=== PATIENT | male | born 1945 | race Caucasian/White ===

== ENCOUNTER 2017-05-01 14:03 | Inpatient (IN) | payer BC, MEDICARE ==
[2017-05-01] VITALS (108 sets, daily range): BP systolic 78–106; BP diastolic 40–53; PULSE 76–89; TEMP 98.5–99.6; O2SAT 83–95
[~2017-05-01] VITALS: Ht 177.8 cm; Wt 73.2 kg
[~2017-05-01 14:03] MED LIST: ASPIRIN E.C. 8181 MG PO; DESYREL 50MG50 MG PO; IMODIUM 2MG CAPS2 MG PO; KLOR-CON 1010 MEQ PO; LIPITOR20 MG PO; MICROZIDE12.5 MG PO; NORVASC 10MG10 MG PO; PRINIVIL40 MG PO; PROAIR HFA0.09 MG/AC IH; ZITHROMAX500 M2 PO; ZYLOPRIM 100MG100 MG PO
[2017-05-01 20:15] LABS: ARTERIAL BLD GAS O2 SATURATION 89.7 % (92-100); ARTERIAL BLD GAS TCO2 CT 29.9; ARTERIAL BLOOD GAS BASE EXCESS 6.1 (-2-2); ARTERIAL BLOOD GAS HCO3 28.8 meq/L (22-26); ARTERIAL BLOOD GAS PCO2 35.2 mmHg (35-45); ARTERIAL BLOOD GAS PO2 54.2 mmHg (80-100); ARTERIAL BLOOD GAS pH 7.53 (7.35-7.45)
[2017-05-01 20:38] LABS: MEAN CELL VOLUME 84 fl (80.0-100.0); MEAN CORPUSCULAR HGB CONC 34 g/dl (33.0-37.0); MEAN PLATELET VOLUME 10.9 fl (7.4-10.4); PLATELET COUNT 552 K/mm3 (130-400); RED BLOOD COUNT 3.96 M/mm3 (4.20-5.60); REDCELL DISTRIBUTION WIDTH-CV 14.4 % (11.5-14.5)
[2017-05-01 20:41] LABS: HEMATOCRIT 33.1 % (42.0-52.0); HEMOGLOBIN 11.3 g/dl (13.5-18.0); MEAN CORPUSCULAR HEMOGLOBIN 29 pg (27.0-31.0)
[2017-05-01 20:47] LABS: INR 1.3 (0.8-3.0); PROTHROMBIN TIME 15.6 SECONDS (9.7-12.8)
[2017-05-01 20:51] LABS: ALANINE AMINOTRANSFERASE 35 U/L (21-72); ALKALINE PHOSPHATASE 142 U/L (50-136); ANION GAP 11 mmol/L (7-16); AST,SGOT 55 U/L (15-37); BILIRUBIN,TOTAL 0.3 mg/dL (0.0-1.0); BLOOD UREA NITROGEN 33 mg/dL (9-20); CALCIUM 7.9 mg/dL (8.4-10.2); CARBON DIOXIDE 31 mmol/L (22-30); CHLORIDE 94 mmol/L (98-107); CREATININE, serum 1.07 mg/dL (0.66-1.25); GLUCOSE 255 mg/dL (74-106); SODIUM 136 mmol/L (137-145); TOTAL PROTEIN 6.5 gm/dL (6.4-8.2)
[2017-05-01 20:54] LABS: POTASSIUM 2.9 mmol/L (3.4-5.0); SALICYLATE < 1.0 mg/dL
[2017-05-01 22:08] LABS: BAND 26 % (0-10); LYMPHOCYTE 1 % (20.0-51.0); NEUTROPHILS 73 % (42.0-75.2); PLATELET ESTIMATE INCREASED (NORMAL)
[2017-05-02] VITALS (1257 sets, daily range): BP systolic 90–121; BP diastolic 49–73; PULSE 62–80; TEMP 96.7–98.7; O2SAT 69–100
[2017-05-02 01:13] LABS: AMORPHOUS CRYSTAL Present /uL; COLLECTION METHOD CLEAN CATCH; MUCOUS Present /lpf; PH 5 (5-8); SQUAMOUS EPITHELIAL 0-2 /hpf; URINE APPEARANCE Hazy; URINE BACTERIA Rare /hpf; URINE BILIRUBIN Negative (NEGATIVE); URINE BLOOD 1+ (NEGATIVE); URINE COLOR Yellow; URINE GLUCOSE Negative (NEGATIVE); URINE KETONE Negative (NEGATIVE); URINE LEUKOCYTE ESTERASE Negative (NEGATIVE); URINE NITRATE Negative (NEGATIVE); URINE PROTEIN(semi-quant) 1+ (NEGATIVE); URINE UROBILINOGEN Negative (NEGATIVE)
[2017-05-02 04:24] LABS: MEAN CELL VOLUME 84 fl (80.0-100.0); MEAN CORPUSCULAR HGB CONC 34 g/dl (33.0-37.0); MEAN PLATELET VOLUME 10.7 fl (7.4-10.4); RED BLOOD COUNT 3.62 M/mm3 (4.20-5.60); REDCELL DISTRIBUTION WIDTH-CV 14.6 % (11.5-14.5)
[2017-05-02 04:31] LABS: INR 1.2 (0.8-3.0); PROTHROMBIN TIME 14.5 SECONDS (9.7-12.8)
[2017-05-02 04:34] LABS: ALBUMIN 2.7 gm/dL (3.5-5.0); BILIRUBIN,TOTAL 0.3 mg/dL (0.0-1.0); CALCIUM 7.3 mg/dL (8.4-10.2); CREATININE, serum 0.98 mg/dL (0.66-1.25); POTASSIUM 3.2 mmol/L (3.4-5.0); TOTAL PROTEIN 5.9 gm/dL (6.4-8.2)
[2017-05-02 04:47] LABS: HEMATOCRIT 30.5 % (42.0-52.0); HEMOGLOBIN 10.5 g/dl (13.5-18.0); MEAN CORPUSCULAR HEMOGLOBIN 29 pg (27.0-31.0); PLATELET COUNT 451 K/mm3 (130-400)
[2017-05-02 04:56] LABS: BAND 3 % (0-10); LYMPHOCYTE 4 % (20.0-51.0); NEUTROPHILS 90 % (42.0-75.2); ROULEAUX 1+; TOXIC GRANULATION PRESENT
[2017-05-02 04:57] LABS: TARGET CELLS 2+
[2017-05-02 04:58] LABS: ANISOCYTOSIS 1+; POIKILOCYTOSIS 1+
[2017-05-03] VITALS (519 sets, daily range): BP systolic 109–137; BP diastolic 57–75; PULSE 64–109; TEMP 97–98.3; O2SAT 79–95
[2017-05-03 06:10] LABS: MEAN CELL VOLUME 86 fl (80.0-100.0); MEAN CORPUSCULAR HGB CONC 33 g/dl (33.0-37.0); MEAN PLATELET VOLUME 10.8 fl (7.4-10.4); PLATELET COUNT 481 K/mm3 (130-400); RED BLOOD COUNT 3.64 M/mm3 (4.20-5.60); REDCELL DISTRIBUTION WIDTH-CV 15.1 % (11.5-14.5)
[2017-05-03 06:16] LABS: INR 1.2 (0.8-3.0); PROTHROMBIN TIME 13.5 SECONDS (9.7-12.8)
[2017-05-03 06:22] LABS: HEMATOCRIT 31.3 % (42.0-52.0); HEMOGLOBIN 10.3 g/dl (13.5-18.0); MEAN CORPUSCULAR HEMOGLOBIN 28 pg (27.0-31.0)
[2017-05-03 06:27] LABS: ALBUMIN 2.6 gm/dL (3.5-5.0); BILIRUBIN,TOTAL 0.3 mg/dL (0.0-1.0); CALCIUM 7.1 mg/dL (8.4-10.2); CREATININE, serum 0.73 mg/dL (0.66-1.25); POTASSIUM 3.2 mmol/L (3.4-5.0); TOTAL PROTEIN 5.9 gm/dL (6.4-8.2)
[2017-05-03 09:35] LABS: BAND 31 % (0-10); HYPOCHROMIA 1+; LYMPHOCYTE 8 % (20.0-51.0); NEUTROPHILS 60 % (42.0-75.2); PLATELET ESTIMATE INCREASED (NORMAL); TARGET CELLS 2+
[2017-05-04 03:44] VITALS: BP 145/77; PULSE 44; TEMP 97.9
[2017-05-04 06:56] LABS: INR 1.2 (0.8-3.0); PROTHROMBIN TIME 13.5 SECONDS (9.7-12.8)
[2017-05-04 06:57] LABS: MEAN CELL VOLUME 87 fl (80.0-100.0); MEAN CORPUSCULAR HGB CONC 33 g/dl (33.0-37.0); MEAN PLATELET VOLUME 10.6 fl (7.4-10.4); PLATELET COUNT 535 K/mm3 (130-400); RED BLOOD COUNT 3.64 M/mm3 (4.20-5.60); REDCELL DISTRIBUTION WIDTH-CV 15.2 % (11.5-14.5)
[2017-05-04 07:12] LABS: HEMATOCRIT 31.5 % (42.0-52.0); HEMOGLOBIN 10.3 g/dl (13.5-18.0); MEAN CORPUSCULAR HEMOGLOBIN 28 pg (27.0-31.0)
[2017-05-04 07:16] LABS: ALBUMIN 2.6 gm/dL (3.5-5.0); BILIRUBIN,TOTAL 0.3 mg/dL (0.0-1.0); CALCIUM 7.5 mg/dL (8.4-10.2); CREATININE, serum 0.79 mg/dL (0.66-1.25); POTASSIUM 3.3 mmol/L (3.4-5.0); TOTAL PROTEIN 5.9 gm/dL (6.4-8.2)
[2017-05-04 08:10] VITALS: BP 138/75; PULSE 67; TEMP 97.8
[2017-05-04 10:45] LABS: BAND 4 % (0-10); LYMPHOCYTE 5 % (20.0-51.0); NEUTROPHILS 87 % (42.0-75.2); PLATELET ESTIMATE INCREASED (NORMAL)
[2017-05-04 10:46] LABS: HYPOCHROMIA 1+
[2017-05-04 11:53] VITALS: BP 147/81; PULSE 71; TEMP 97.7
[2017-05-04 15:21] VITALS: BP 145/85; PULSE 77; TEMP 98.1
[2017-05-04 20:21] VITALS: BP 166/96; PULSE 79; TEMP 98.1
[2017-05-04 22:37] VITALS: BP 162/92; PULSE 86; TEMP 98.4
[2017-05-05 00:01] VITALS: BP 138/65; PULSE 80; TEMP 98.3
[2017-05-05 03:42] VITALS: BP 140/65; PULSE 79; TEMP 98.1
[2017-05-05 07:53] LABS: MEAN CELL VOLUME 87 fl (80.0-100.0); MEAN CORPUSCULAR HGB CONC 33 g/dl (33.0-37.0); MEAN PLATELET VOLUME 10.5 fl (7.4-10.4); PLATELET COUNT 531 K/mm3 (130-400); RED BLOOD COUNT 3.89 M/mm3 (4.20-5.60); REDCELL DISTRIBUTION WIDTH-CV 15.5 % (11.5-14.5)
[2017-05-05 07:54] LABS: HEMATOCRIT 33.8 % (42.0-52.0); MEAN CORPUSCULAR HEMOGLOBIN 28 pg (27.0-31.0)
[2017-05-05 08:03] VITALS: BP 156/73; PULSE 77; TEMP 99
[2017-05-05 08:08] LABS: CALCIUM 7.8 mg/dL (8.4-10.2); CREATININE, serum 0.77 mg/dL (0.66-1.25); MAGNESIUM 1.7 mg/dL (1.6-2.3)
[2017-05-05] MEDS ORDERED: OMNICEF 300MG300 MG PO (08:31)
[2017-05-05] MEDS ORDERED: MAG-OX 400400 MG/TAB PO (08:33)
[2017-05-05] MEDS ORDERED: K-TAB20 PO (08:33)
[2017-05-05] MEDS ORDERED: MEDROL 4MG DOSPA4 MG PO (08:43)
[2017-05-05 09:44] LABS: BAND 8 % (0-10); LYMPHOCYTE 13 % (20.0-51.0); NEUTROPHILS 68 % (42.0-75.2); PLATELET ESTIMATE INCREASED (NORMAL)
[2017-05-05 09:45] LABS: HYPOCHROMIA 2+
== END 2017-05-05 12:45 | disposition home or self-care (01) | DRG 871 ==
LOC: MEDICAL 14:03 → ICU 20:56 → MEDICAL 05-03 12:15
PROVIDERS: Nurse Practitioner Family
PROC: 02HV33Z Insertion of Infusion Device into Superior Vena Cava, Percutaneous Approach (ICD-10-PCS; principal; 2017-05-01)
DX: A41.9 Sepsis, unspecified organism (principal); J18.9 Pneumonia, unspecified organism; R65.21 Severe sepsis with septic shock; J96.01 Acute respiratory failure with hypoxia; I21.4 Non-ST elevation (NSTEMI) myocardial infarction; E43 Unspecified severe protein-calorie malnutrition; I10 Essential (primary) hypertension; J44.9 Chronic obstructive pulmonary disease, unspecified; F17.210 Nicotine dependence, cigarettes, uncomplicated; E87.6 Hypokalemia; R73.9 Hyperglycemia, unspecified
CPT/HCPCS: 99222-AI; 99232-AI; 99233-AI; 99239; J0456; J0696; J1644; J1650; J1720; J2543; J3370; J7030; J7050; J7512

== ENCOUNTER 2017-12-31 07:11 | Outpatient (CLI) | payer BC, MEDICARE ==
[~2017-12-31] VITALS: Ht 177.8 cm; Wt 60.7 kg
[2017-12-31] VITALS (12 sets, daily range): BP systolic 93–141; BP diastolic 53–70; PULSE 65–83; TEMP 98.1
[~2017-12-31 07:11] MED LIST changes: +K-TAB20 PO; +MAG-OX 400400 MG/TAB PO; +MEDROL 4MG DOSPA4 MG PO; +OMNICEF 300MG300 MG PO
[2017-12-31] MEDS ORDERED: MAG-OX 400400 MG/TAB PO (07:24)
[2017-12-31] MEDS ORDERED: K-DUR20 MEQ PO (07:25)
[2017-12-31] MEDS ORDERED: K-TAB10 PO (07:28)
== END 2017-12-31 10:10 | disposition home or self-care (01) ==
LOC: COL.RAD 07:11
DX: J84.10 Pulmonary fibrosis, unspecified (principal); J98.4 Other disorders of lung; R91.8 Other nonspecific abnormal finding of lung field
CPT/HCPCS: 32106

== ENCOUNTER → 2018-01-29 | Outpatient (REF) ==
[~2018-01-29] MED LIST changes: +K-DUR20 MEQ PO; +K-TAB10 PO
[2018-01-29 05:16] LABS: HEMATOCRIT 32.6 % (42.0-52.0); HEMOGLOBIN 10.5 g/dl (13.5-18.0); MEAN CELL VOLUME 88 fl (80.0-100.0); MEAN CORPUSCULAR HEMOGLOBIN 29 pg (27.0-31.0); MEAN CORPUSCULAR HGB CONC 32 g/dl (33.0-37.0); MEAN PLATELET VOLUME 10.3 fl (7.4-10.4); PLATELET COUNT 410 K/mm3 (130-400); RED BLOOD COUNT 3.69 M/mm3 (4.20-5.60); REDCELL DISTRIBUTION WIDTH-CV 15.2 % (11.5-14.5)
[2018-01-29 05:31] LABS: BAND 8 % (0-10); HYPOCHROMIA 1+; LYMPHOCYTE 3 % (20.0-51.0); NEUTROPHILS 87 % (42.0-75.2)
[2018-01-29 05:32] LABS: TARGET CELLS 1+
[2018-01-29 05:34] LABS: PLATELET ESTIMATE INCREASED (NORMAL)
== END ==
LOC: ZMSC 05:13
PROVIDERS: Student in an Organized Health Care Education/Training Program
DX: Z01.89 Encounter for other specified special examinations (principal)

== ENCOUNTER 2018-02-16 14:45 | Inpatient (IN) | payer BC, MEDICARE ==
[~2018-02-16] VITALS: Ht 177.8 cm; Wt 56.3 kg
[2018-02-16 15:05] VITALS: BP 80/35; PULSE 57; TEMP 98.5
[2018-02-16 15:55] LABS: MEAN CELL VOLUME 84 fl (80.0-100.0); MEAN CORPUSCULAR HGB CONC 32 g/dl (33.0-37.0); MEAN PLATELET VOLUME 9.9 fl (7.4-10.4); PLATELET COUNT 594 K/mm3 (130-400); REDCELL DISTRIBUTION WIDTH-CV 15.3 % (11.5-14.5)
[2018-02-16 16:00] LABS: CREATININE, serum 1.57 mg/dL (0.66-1.25); HEMATOCRIT 30.1 % (42.0-52.0); HEMOGLOBIN 9.7 g/dl (13.5-18.0); MEAN CORPUSCULAR HEMOGLOBIN 27 pg (27.0-31.0)
[2018-02-16 16:14] LABS: BAND 9 % (0-10); LYMPHOCYTE 6 % (20.0-51.0); NEUTROPHILS 77 % (42.0-75.2); PLATELET ESTIMATE INCREASED (NORMAL)
[2018-02-16] MEDS ORDERED: NICODERM C14 MG/PATC TD (16:54)
[2018-02-16] MEDS ORDERED: PREVALITE4 GM/5.5 G PO (16:55)
[2018-02-16 21:22] VITALS: BP 94/80; PULSE 74; TEMP 98.9
[2018-02-17] VITALS (7 sets, daily range): BP systolic 52–139; BP diastolic 37–115; PULSE 64–77; TEMP 98–99
[2018-02-17 06:04] LABS: MEAN CELL VOLUME 83 fl (80.0-100.0); MEAN CORPUSCULAR HGB CONC 32 g/dl (33.0-37.0); MEAN PLATELET VOLUME 9.8 fl (7.4-10.4); PLATELET COUNT 545 K/mm3 (130-400); RED BLOOD COUNT 3.21 M/mm3 (4.20-5.60); REDCELL DISTRIBUTION WIDTH-CV 14.9 % (11.5-14.5)
[2018-02-17 06:08] LABS: HEMATOCRIT 26.6 % (42.0-52.0); HEMOGLOBIN 8.6 g/dl (13.5-18.0); MEAN CORPUSCULAR HEMOGLOBIN 27 pg (27.0-31.0)
[2018-02-17 06:12] LABS: CALCIUM 8.3 mg/dL (8.4-10.2); CREATININE, serum 1.17 mg/dL (0.66-1.25); POTASSIUM 3.4 mmol/L (3.4-5.0)
[2018-02-17 06:54] LABS: BAND 15 % (0-10); LYMPHOCYTE 7 % (20.0-51.0); NEUTROPHILS 72 % (42.0-75.2); PLATELET ESTIMATE INCREASED (NORMAL)
[2018-02-17 06:55] LABS: ERYTHROCYTE SEDIMENTATION RATE > 140 mm/hr (0-30); HYPOCHROMIA 1+
[2018-02-18 03:34] LABS: PROCALCITONIN 0.32 ng/mL (0.00-0.09)
[2018-02-18 04:28] VITALS: BP 94/78; PULSE 74; TEMP 98.6
[2018-02-18 07:51] LABS: MEAN CELL VOLUME 84 fl (80.0-100.0); MEAN CORPUSCULAR HGB CONC 31 g/dl (33.0-37.0); MEAN PLATELET VOLUME 10.3 fl (7.4-10.4); PLATELET COUNT 531 K/mm3 (130-400); RED BLOOD COUNT 2.88 M/mm3 (4.20-5.60); REDCELL DISTRIBUTION WIDTH-CV 15.4 % (11.5-14.5)
[2018-02-18 07:55] LABS: HEMATOCRIT 24.2 % (42.0-52.0); HEMOGLOBIN 7.6 g/dl (13.5-18.0); MEAN CORPUSCULAR HEMOGLOBIN 26 pg (27.0-31.0)
[2018-02-18 08:00] VITALS: BP 113/54; PULSE 71; TEMP 97.5
[2018-02-18 08:08] LABS: BAND 11 % (0-10); LYMPHOCYTE 2 % (20.0-51.0); NEUTROPHILS 87 % (42.0-75.2); PLATELET ESTIMATE INCREASED (NORMAL)
[2018-02-18 08:09] LABS: HYPOCHROMIA 2+
[2018-02-18 08:29] LABS: CALCIUM 7.7 mg/dL (8.4-10.2); CREATININE, serum 0.77 mg/dL (0.66-1.25); HIV 1/2 Antibodies Non-Reactive; HIV-1p24 Antigen Non-Reactive; POTASSIUM 3.3 mmol/L (3.4-5.0)
[2018-02-18 12:00] VITALS: BP 110/63; PULSE 98; TEMP 97.6
[2018-02-18 17:00] VITALS: BP 115/59; PULSE 94; TEMP 97.8
[2018-02-18 20:19] VITALS: BP 94/63; PULSE 73; TEMP 98.2
[2018-02-19 04:34] VITALS: BP 135/66; PULSE 71; TEMP 98.2
[2018-02-19 05:50] LABS: MEAN CELL VOLUME 84 fl (80.0-100.0); MEAN CORPUSCULAR HGB CONC 32 g/dl (33.0-37.0); MEAN PLATELET VOLUME 10.2 fl (7.4-10.4); PLATELET COUNT 553 K/mm3 (130-400); RED BLOOD COUNT 2.75 M/mm3 (4.20-5.60); REDCELL DISTRIBUTION WIDTH-CV 15.9 % (11.5-14.5)
[2018-02-19 05:54] LABS: HEMATOCRIT 23.2 % (42.0-52.0); HEMOGLOBIN 7.4 g/dl (13.5-18.0); MEAN CORPUSCULAR HEMOGLOBIN 27 pg (27.0-31.0)
[2018-02-19 06:00] LABS: CALCIUM 7.7 mg/dL (8.4-10.2); CREATININE, serum 0.68 mg/dL (0.66-1.25); MAGNESIUM 1.4 mg/dL (1.6-2.3); POTASSIUM 3.7 mmol/L (3.4-5.0)
[2018-02-19 06:54] LABS: BAND 4 % (0-10); LYMPHOCYTE 2 % (20.0-51.0); NEUTROPHILS 91 % (42.0-75.2); PLATELET ESTIMATE INCREASED (NORMAL)
[2018-02-19 06:55] LABS: HYPOCHROMIA 2+
[2018-02-19 08:46] VITALS: BP 146/70; PULSE 73; TEMP 98
[2018-02-19 11:09] VITALS: BP 136/72; PULSE 75; TEMP 98
[2018-02-19] MEDS ORDERED: LEVAQUIN 5500 MG/TA1 PO (11:24)
[2018-02-19] MEDS ORDERED: PREDNISONE20 MG PO (11:26)
[2018-02-23 08:38] LABS: .HISTOPLASMA ANTIGEN SERUM None Detected (())
[2018-02-23 11:57] LABS: BLASTOMYCES ID Negative (Negative)
[2018-02-23 16:02] LABS: HISTOPLASMA ID Negative (Negative); HISTOPLASMA MYCELIAL Negative (Negative); HISTOPLASMA YEAST Negative (Negative)
[2018-02-25 15:18] LABS: COCCIDIOIDES AB IGG Negative (Negative); COCCIDIOIDES AB IGM Negative (Negative); COCCIDIOIDES CF Negative (Negative)
== END 2018-02-19 15:30 | disposition home or self-care (01) | DRG 871 ==
LOC: SURG 14:45
PROVIDERS: Internal Medicine Infectious Disease; Internal Medicine Pulmonary Disease; Physician Assistant
PROC: 02HV33Z Insertion of Infusion Device into Superior Vena Cava, Percutaneous Approach (ICD-10-PCS; principal; 2018-02-17)
DX: A41.9 Sepsis, unspecified organism (principal); J18.9 Pneumonia, unspecified organism; E43 Unspecified severe protein-calorie malnutrition; J44.0 Chronic obstructive pulmonary disease with (acute) lower respiratory infection; N17.9 Acute kidney failure, unspecified; Z68.1 Body mass index [BMI] 19.9 or less, adult; R65.20 Severe sepsis without septic shock; I10 Essential (primary) hypertension; I73.9 Peripheral vascular disease, unspecified; E78.5 Hyperlipidemia, unspecified; F17.290 Nicotine dependence, other tobacco product, uncomplicated; D64.9 Anemia, unspecified; E87.6 Hypokalemia; E83.42 Hypomagnesemia
CPT/HCPCS: 99223-AI; 99232-AI; 99239; C1751; J1956; J2543; J2920; J3370; J3475; J3480; J7030; J7050; J7120; J7512

== ENCOUNTER 2018-03-04 11:45 | Outpatient (RCR) | payer BC ==
[2018-02-22 09:16] LABS: MEAN CELL VOLUME 84 fl (80.0-100.0); MEAN CORPUSCULAR HGB CONC 32 g/dl (33.0-37.0); MEAN PLATELET VOLUME 9.7 fl (7.4-10.4); PLATELET COUNT 623 K/mm3 (130-400); REDCELL DISTRIBUTION WIDTH-CV 15.8 % (11.5-14.5)
[2018-02-22 09:19] LABS: HEMATOCRIT 25.9 % (42.0-52.0); HEMOGLOBIN 8.3 g/dl (13.5-18.0); MEAN CORPUSCULAR HEMOGLOBIN 27 pg (27.0-31.0)
[2018-02-22 09:21] VITALS: BP 133/67; PULSE 71; TEMP 97.5
[2018-02-22 09:25] LABS: CALCIUM 8.7 mg/dL (8.4-10.2); CREATININE, serum 0.85 mg/dL (0.66-1.25); POTASSIUM 4.4 mmol/L (3.4-5.0)
[2018-03-01 09:12] VITALS: BP 116/54; PULSE 80; TEMP 97.5
[2018-03-01 09:54] LABS: MEAN CELL VOLUME 90 fl (80.0-100.0); MEAN CORPUSCULAR HGB CONC 31 g/dl (33.0-37.0); MEAN PLATELET VOLUME 10.2 fl (7.4-10.4); PLATELET COUNT 498 K/mm3 (130-400); RED BLOOD COUNT 2.28 M/mm3 (4.20-5.60); REDCELL DISTRIBUTION WIDTH-CV 20.9 % (11.5-14.5)
[2018-03-01 10:02] LABS: HEMATOCRIT 20.4 % (42.0-52.0); HEMOGLOBIN 6.3 g/dl (13.5-18.0); MEAN CORPUSCULAR HEMOGLOBIN 28 pg (27.0-31.0)
[2018-03-04] VITALS (8 sets, daily range): BP systolic 103–128; BP diastolic 49–81; PULSE 70–81; TEMP 97.6–98.6
[~2018-03-04] VITALS: Ht 177.8 cm; Wt 63.0 kg
[~2018-03-04 11:45] MED LIST changes: +LEVAQUIN 5500 MG/TA1 PO; +NICODERM C14 MG/PATC TD; +PREDNISONE20 MG PO; +PREVALITE4 GM/5.5 G PO
[2018-03-04] MEDS ORDERED: PRILOSEC 20MG20 MG PO (12:14)
== END 2018-03-04 16:43 | disposition home or self-care (01) ==
LOC: EUO 11:45
PROVIDERS: Internal Medicine
DX: D50.0 Iron deficiency anemia secondary to blood loss (chronic) (principal); R91.8 Other nonspecific abnormal finding of lung field; D72.828 Other elevated white blood cell count; Z45.2 Encounter for adjustment and management of vascular access device; Z95.9 Presence of cardiac and vascular implant and graft, unspecified
CPT/HCPCS: P9016

== ENCOUNTER → 2018-05-12 | Outpatient (CLI) | payer BC ==
[~2018-05-12] MED LIST changes: +PRILOSEC 20MG20 MG PO
== END ==
LOC: COL.RAD 08:19
DX: K22.5 Diverticulum of esophagus, acquired (principal)

== ENCOUNTER → 2018-05-20 | Outpatient (CLI) | payer BC ==
[2018-05-20 09:14] LABS: CALCIUM 9.2 mg/dL (8.4-10.2); CREATININE, serum 0.86 mg/dL (0.66-1.25); POTASSIUM 4.2 mmol/L (3.4-5.0)
== END ==
LOC: COL.RAD 08:14
PROVIDERS: Internal Medicine
DX: Z13.89 Encounter for screening for other disorder (principal); J43.9 Emphysema, unspecified; J18.1 Lobar pneumonia, unspecified organism; J98.6 Disorders of diaphragm; R91.8 Other nonspecific abnormal finding of lung field
CPT/HCPCS: Q9967

== ENCOUNTER → 2018-06-09 | Outpatient (CLI) | payer BC ==
[~2018-06-09] VITALS: Ht 177.8 cm; Wt 60.8 kg
[2018-06-09 09:13] VITALS: BP 111/72; PULSE 68
--- NOTE | 2018-06-09 10:26 | NUR ---
PROCEDURE WAS CANCELLED BY DR HANNA
== END ==
LOC: COL.RAD 08:59
DX: R91.8 Other nonspecific abnormal finding of lung field (principal); R93.89 Abnormal findings on diagnostic imaging of other specified body structures

== ENCOUNTER 2018-07-13 09:15 | Day surgery (SDC) | payer BC ==
[~2018-07-13] VITALS: Ht 180.3 cm; Wt 55.4 kg
[2018-07-13 09:48] VITALS: BP 102/65; PULSE 70; TEMP 97.8
[2018-07-13] MEDS ORDERED: PREVALITE4 GM/5.5 G PO (10:09)
[2018-07-13] MEDS ORDERED: ULTRAM 50MG TAB50 MG PO (10:10)
[2018-07-13] MEDS ORDERED: PROBIOTIC-MAJOR PO (10:10)
[2018-07-13] MEDS ORDERED: VENTOLIN0.09 MG IH (10:11)
[2018-07-13 12:15] VITALS: BP 102/65; PULSE 70; TEMP 97.6
--- NOTE | 2018-07-13 12:15 | NUR ---
Patient returned back to [facility]. Alert and oriented. Ambulated to chair without difficulty. Vital signs stable. States he would like juice and crackers. Denies and pain or nausea. Grace at bedside. Call chun within reach, will continue to monitor.
[2018-07-13 12:30] VITALS: BP 120/71; PULSE 93
--- NOTE | 2018-07-13 12:30 | NUR ---
Patient vital signs WNL. States he is feeling well. No difficulty swallowing. Tolerating food and drink well. Will continue to monitor.
[2018-07-13 12:45] VITALS: BP 131/85; PULSE 63
--- NOTE | 2018-07-13 12:45 | NUR ---
Patient vitals WNL. States that he is ready to go home. Waiting to speak with Dr. Rich.
--- NOTE | 2018-07-13 12:55 | NUR ---
Discharge instructions reviewed with patient and . Verbalized understanding. IV removed per orders. Patient to get dressed.
--- NOTE | 2018-07-13 13:05 | NUR ---
Patient wheeled down to lobby. to drive home.
== END 2018-07-13 13:05 | disposition home or self-care (01) ==
LOC: SDCO 09:15
DX: K52.831 Collagenous colitis (principal); R19.7 Diarrhea, unspecified; R63.4 Abnormal weight loss; K62.4 Stenosis of anus and rectum; K64.4 Residual hemorrhoidal skin tags; K22.5 Diverticulum of esophagus, acquired; K29.30 Chronic superficial gastritis without bleeding; E78.00 Pure hypercholesterolemia, unspecified; I10 Essential (primary) hypertension; J44.9 Chronic obstructive pulmonary disease, unspecified; Z85.828 Personal history of other malignant neoplasm of skin; N40.0 Benign prostatic hyperplasia without lower urinary tract symptoms; F17.210 Nicotine dependence, cigarettes, uncomplicated; F17.290 Nicotine dependence, other tobacco product, uncomplicated; Z79.82 Long term (current) use of aspirin
CPT/HCPCS: J2250; J2405; J3010; J7030

== ENCOUNTER → 2018-07-21 | Outpatient (CLI) | payer BC ==
[2018-07-21] VITALS (15 sets, daily range): BP systolic 95–152; BP diastolic 57–87; PULSE 62–82
[~2018-07-21] VITALS: Ht 180.3 cm; Wt 54.0 kg
[~2018-07-21] MED LIST changes: +CARAFATE 1GM1 G; +CARAFATE 1GM1 G PO; +PROBIOTIC-MAJOR PO; +PULMICORT0.25 MG/2 IH; +ULTRAM 50MG TAB50 MG PO; +VENTOLIN0.09 MG IH
--- NOTE | 2018-07-21 12:39 | NUR ---
PT STATES HE IS IN PAIN 10/10 TO STOMACH AREA. STATES NO ONE HAS BEEN ABLE TO HELP HIM WITH THE PAIN.
[2018-07-21 12:49] LABS: INR 0.9 (0.8-3.0); PROTHROMBIN TIME 10.6 SECONDS (9.7-12.8)
--- NOTE | 2018-07-21 13:05 | NUR ---
PT ON TABLE, TIMEOUT COMPLETED. MONITORING EQUIPMENT PLACED.
--- NOTE | 2018-07-21 13:15 | NUR ---
50 MCG FENTANYL GIVEN. PT FEELING BETTER AFTER 5 MIN
--- NOTE | 2018-07-21 13:20 | NUR ---
SAMPLES TAKEN AND PLACED INTO FORMALIN. PROCEDURE COMPLETE.
--- NOTE | 2018-07-21 15:41 | NUR ---
PT TAKEN DOWNSTAIRS IN WHEELCHAIR TO POV, WAITING. PT ABLE TO GET INTO CAR. PT ENCOURGED/INSTRUCTED NOT TO DRINK ETOH WITH MEDS.
== END ==
LOC: COL.RAD 12:00
PROVIDERS: Internal Medicine Pulmonary Disease
DX: K76.9 Liver disease, unspecified (principal)
CPT/HCPCS: J3010

== ENCOUNTER → 2018-07-26 | Outpatient (CLI) | payer BC, MEDICARE | LOC: MHCPAIN 08:56 | DX: G89.29 Other chronic pain (principal); M79.2 Neuralgia and neuritis, unspecified; G89.3 Neoplasm related pain (acute) (chronic) | CPT/HCPCS: G0463 ==

== ENCOUNTER 2018-08-04 09:40 | Day surgery (SDC) | payer BC ==
[~2018-08-04] VITALS: Ht 177.8 cm; Wt 51.1 kg
[2018-08-04] MEDS ORDERED: NICODERM C14 MG/PATC TD (10:50)
[2018-08-04] MEDS ORDERED: ROXICODONE 55 MG/TAB PO (10:51)
[2018-08-04] MEDS ORDERED: MS CONTIN 115 MG/TAB PO (10:52)
[2018-08-04] MEDS ORDERED: MARINOL5 MG PO (10:52)
[2018-08-04 11:05] VITALS: BP 106/54; PULSE 64; TEMP 98
[2018-08-04 12:25] VITALS: BP 78/50; PULSE 86; TEMP 97.9
--- NOTE | 2018-08-04 12:25 | NUR ---
Pt to [facility] [place] cart from OR. Pt sleeping. Respirations even and unlabored. O2 placed on pt at 2 liters via nasal canula. Incisions to right chest and neck are clean, and dry with mcghee set intact. Call light within reach. Will continue to monitor. No visitors here with pt at this time. Call light within reach.
[2018-08-04 12:40] VITALS: BP 104/55; PULSE 78
--- NOTE | 2018-08-04 12:40 | NUR ---
Pt awake. Denies pain. Pudding and Water given per pt request. Will continue to monitor. Call light within reach.
[2018-08-04 12:55] VITALS: BP 102/54; PULSE 76
--- NOTE | 2018-08-04 12:55 | NUR ---
Pt continues to rest. Tolerating food and fluids without difficulties. Call light within reach.
--- NOTE | 2018-08-04 13:10 | NUR ---
Pt up to restroom with stand by assistance. Pt incontinent of stool. Wet wipes and depends given to pt. Pt requests no assistance from nurse. Call light within reach.
--- NOTE | 2018-08-04 13:20 | NUR ---
Pt back to room. IV site discontinued with all parts intact. Will gather discharge instructions together. Pt resting in bed dressed.
--- NOTE | 2018-08-04 13:40 | NUR ---
Discharge instructions reviewed. Pt and voice understanding. Pt escorted to private car via wheel chair. Pt accompanied home his .
== END 2018-08-04 13:40 | disposition home or self-care (01) ==
LOC: SDCO 09:40
DX: C78.7 Secondary malignant neoplasm of liver and intrahepatic bile duct (principal); C80.1 Malignant (primary) neoplasm, unspecified; Z79.899 Other long term (current) drug therapy; Z79.82 Long term (current) use of aspirin; Z85.828 Personal history of other malignant neoplasm of skin; Z80.1 Family history of malignant neoplasm of trachea, bronchus and lung; Z86.79 Personal history of other diseases of the circulatory system
CPT/HCPCS: C1788; J0690; J1644; J2250; J2405; J2704; J3010; J7120